=== PATIENT | female | born 1975 | race Caucasian/White ===

== ENCOUNTER → 2017-04-21 | Outpatient (CLI) | payer BC | END | disposition disaster alternative care site (69) | LOC: GRAD 15:38 | DX: M79.601 Pain in right arm (principal); M79.602 Pain in left arm; H53.9 Unspecified visual disturbance; E55.9 Vitamin D deficiency, unspecified; M51.26 Other intervertebral disc displacement, lumbar region; K63.89 Other specified diseases of intestine; R20.2 Paresthesia of skin ==

== ENCOUNTER → 2017-05-26 | Outpatient (CLI) | payer BC | LOC: GBCOE 14:17 | DX: Z12.31 Encounter for screening mammogram for malignant neoplasm of breast (principal) | CPT/HCPCS: G0202 ==